=== PATIENT | male | born 1980 | race Caucasian/White ===

== ENCOUNTER 2023-11-01 19:28 | Emergency (ER) | payer BC ==
[2023-11-02 02:14] LABS: Carbon Dioxide 28 mmol/L (22-29); Chloride 95 mmol/L (98-107); Potassium 3.1 mmol/L (3.5-5.1); Sodium 135 mmol/L (136-145)
[2023-11-02 02:15] LABS: ALT (SGPT) 39 U/L (8-55); AST (SGOT) 51 U/L (5-34); Albumin 3.9 g/dL (3.5-5.0); Alkaline Phosphatase 45 U/L (40-110); BUN (Urea Nitrogen) 17 mg/dL (8.9-20.6); Bilirubin, Total 1.1 mg/dL (0.2-1.2); Calc. Creatinine Clearance 0 mL/min (70-130); Calcium 9.4 mg/dL (7.6-10.4); Estimated GFR 99; Globulin 3.7 g/dL (2.4-3.5); Glucose 108 mg/dL (70-105); Protein, Total 7.6 g/dL (6.0-8.3)
[2023-11-02 02:18] LABS: %Basophils 0.2 % (0.0-1.0); %Eosinophils 2.6 % (0.0-10.0); %Lymphocytes 23.9 % (21.0-51.0); %Monocytes 8.9 % (0.0-10.0); %Neutrophils 64.2 % (42.0-75.0); Anion Gap 15 mmol/L (10-20); Hematocrit 40.8 % (42.0-52.0); Hemoglobin 13.7 g/dL (14.0-18.0); Mean Corpuscular HGB CONC 33.6 g/dL (32.0-36.0); Mean Corpuscular Hemoglobin 28.7 pg (27.0-31.0); Mean Corpuscular Volume 85.4 fL (78.0-98.0); Mean Platelet Volume 9.8 fL (7.4-10.4); Platelet Count 306 10x3/uL (130-400); RBC Distribution Width 12.8 % (11.5-14.5); Red Blood Cell (RBC) Count 4.78 mill/uL (4.70-6.10); White Blood Cell (WBC) Count 8.12 10x3/uL (4.8-10.8)
[2023-11-02 02:19] LABS: #Basophils 0.02 10x3/uL (0.0-0.2); #Eosinphils 0.21 10x3/uL (0.0-0.7); #Monocytes 0.72 10x3/uL (0.11-0.59); #Neutrophils 5.21 10x3/uL (1.40-6.50); Acetaminophen Less than 10 mcg/mL (Less than 10); Alcohol Less than 10.0 mg/dL (Less than 10); Salicylate Less than 8.0 mg/dL (Less than 8.0)
== END 2023-11-02 08:37 | disposition home or self-care (01) ==
LOC: EEVIPCON 19:28 → ERS 19:28
DX: E87.6 Hypokalemia (principal); T43.655A Adverse effect of methamphetamines, initial encounter; R29.700 NIHSS score 0
CPT/HCPCS: 70450; 80053; 80307; 85025